=== PATIENT | female | born 1985 | race Two or more races ===

== ENCOUNTER 2018-06-30 10:20 | Emergency (ER) | payer MEDICAID ==
[~2018-06-30] VITALS: Ht 160 cm; Wt 64.0 kg
[2018-06-30 10:58] VITALS: Ht 160 cm; Wt 64.0 kg
[2018-06-30 12:57] LABS: CALCIUM 8.7 mg/dL (8.5-10.1); CARBON DIOXIDE 33.1 mmol/L (21-32); CHLORIDE SERUM 103 mmol/L (98-107); CREATININE SERUM 0.7 mg/dL (0.6-1.0); GFR1 > 60 mL/min; GLUCOSE SERUM 91 mg/dL (74-106); POTASSIUM SERUM 3.6 mmol/L (3.5-5.1); SODIUM SERUM 138 mmol/L (136-145)
[2018-06-30 12:59] LABS: BASOPHIL % 0.1 % (0-2); PLATELET COUNT 273 x10^3mcL (130-400)
[2018-06-30 13:00] LABS: RED CELL DISTRIBUTION WIDTH 14.6 % (11.5-14.5)
[2018-06-30 13:07] LABS: ALBUMIN 3.3 g/dL (3.4-5.0); ALKALINE PHOSPHATASE 62 U/L (46-116); ALT/SGPT 29 U/L (14-59); AMYLASE 62 U/L (25-115); AST/SGOT 14 U/L (15-37); BILIRUBIN TOTAL 0.21 mg/dL (0.20-1.00); CHOLESTEROL 133 mg/dL (<200); HDL CHOLESTEROL 50 mg/dL (40-60); LIPASE 131 IU/L (73-393); T4(THYROXINE) 8.8 ug/dL (4.7-13.3); TOTAL PROTEIN, SERUM 7.6 g/dL (6.4-8.2)
[2018-06-30 13:14] LABS: microscopic required? NO
[2018-06-30 13:29] VITALS: BP 145/97
[2018-06-30 13:43] LABS: UA SPECIFIC GRAVITY 1.025 (1.005-1.035); urine erythrocyte NEGATIVE (NEGATIVE)
[2018-06-30 13:52] LABS: AMPHETAMINE QUAL UR NONE DETECTED (See below)
== END 2018-06-30 15:05 | disposition home or self-care (01) ==
LOC: ED 10:20
PROVIDERS: Emergency Medicine
DX: R20.0 Anesthesia of skin (principal); G43.909 Migraine, unspecified, not intractable, without status migrainosus; J45.909 Unspecified asthma, uncomplicated
CPT/HCPCS: 36415; 83880; J3030; Q0092